=== PATIENT | female | born 1945 | race Caucasian/White ===

== ENCOUNTER 2017-07-02 08:24 | Emergency (ER) | payer OTHER ==
[~2017-07-02] VITALS: Ht 162.6 cm; Wt 75.0 kg
[2017-07-02 09:28] LABS: HEMATOCRIT 36.8 % (36.0-46.0); MCH 30.2 PG (29.0-34.0); MCHC 33.7 G/DL (30.0-36.0); MCV 89.5 FL (83-99); MEAN PLAT.VOLUME 9.8 uM^3 (9.5-12.4); PLATELET COUNT 224 K/uL (156-360); RBC DIS.WIDTH-CV 14.4 % (11.8-14.6); RBC DIS.WIDTH-SD 47.3 % (39-53); RED BLOOD COUNT 4.11 M/uL (3.80-5.20); WHITE BLOOD COUNT 10.7 K/uL (4.1-10.2)
[2017-07-02 09:49] LABS: ANION GAP 10 MEQ/L (2-14); CHLORIDE 100 MEQ/L (99-109); POTASSIUM 3.5 MEQ/L (3.7-5.4); SAMPLE HEMOLYSIS CHECK 0; SAMPLE ICTERIC CHECK 0; SAMPLE LIPEMIA CHECK 0; SODIUM 133 MEQ/L (136-147); TROP-I INTERPRETATION NEGATIVE; TROPONIN-I < 0.01 ng/mL (0.0-0.30)
[2017-07-02 09:55] LABS: GFR ESTIMATE (CALCULATED) > 59 mL/min/; GLUCOSE 84 mg/dL (70-99); UREA NITROGEN (BUN) 20 mg/dL (9-23)
[2017-07-02 10:15] LABS: ADD MIUA? YES; BILIRUBIN NEGATIVE; BLOOD NEGATIVE; COLOR STRAW ((YELLOW)); GLUCOSE (STRIP) NEGATIVE; KETONES NEGATIVE; LEUKOCYTES NEGATIVE; NITRITE NEGATIVE; PROTEIN (STRIP) NEGATIVE; SPECIFIC GRAVITY 1.006 (1.000-1.030); UROBILINOGEN 0.2 MG/DL (0.2-1.0)
[2017-07-02 10:18] LABS: BACTERIA NONE SEEN /HPF; EPITHELIAL CELLS RARE /HPF; MUCUS TRACE /LPF; RED BLOOD CELLS 0-5 /HPF (0-5); UCUL ADDED? NO; WHITE BLOOD CELLS 0-5 /HPF (0-5)
[2017-07-02] MEDS ORDERED: PREDNISONE50 MG PO (13:27)
[2017-07-02 14:05] VITALS: BP 117/76
== END 2017-07-02 14:00 | disposition home or self-care (01) ==
LOC: EME 08:24
PROVIDERS: Emergency Medicine
DX: J84.10 Pulmonary fibrosis, unspecified (principal); R07.89 Other chest pain; J45.909 Unspecified asthma, uncomplicated
CPT/HCPCS: 71010; 80048; 81003; 84484; 85027; 93005; 94640; 99281; 99285; J7512

== ENCOUNTER 2017-12-07 05:16 | Emergency (ER) | payer OTHER ==
[~2017-12-07] VITALS: Ht 162.6 cm; Wt 74.0 kg
[~2017-12-07 05:16] MED LIST: PREDNISONE50 MG PO
[2017-12-07 06:06] LABS: HEMATOCRIT 40.1 % (36.0-46.0); HEMOGLOBIN 13.5 G/DL (11.9-15.5); MCH 30.9 PG (29.0-34.0); MCHC 33.7 G/DL (30.0-36.0); MCV 91.8 FL (83-99); PLATELET COUNT 203 K/uL (156-360); RBC DIS.WIDTH-CV 14.1 % (11.8-14.6); RBC DIS.WIDTH-SD 47.4 % (39-53); RED BLOOD COUNT 4.37 M/uL (3.80-5.20); WHITE BLOOD COUNT 9.3 K/uL (4.1-10.2)
[2017-12-07 06:20] LABS: ALBUMIN 3.7 g/dL (3.2-4.8)
[2017-12-07 06:21] LABS: CHLORIDE 99 mEq/L (99-109); POTASSIUM 3.9 mEq/L (3.7-5.4); SODIUM 136 mEq/L (136-147)
[2017-12-07 06:23] LABS: GLUCOSE 103 mg/dL (70-99); TOTAL PROTEIN 6.2 g/dL (6.4-8.3)
[2017-12-07 06:25] LABS: TOTAL BILIRUBIN 0.5 mg/dL (0.0-1.0)
[2017-12-07 06:26] LABS: ALKALINE PHOSPHATASE 73 IU/L (3-129)
[2017-12-07 06:27] LABS: CREATININE 0.8 mg/dL (0.6-1.3); GFR ESTIMATE (CALCULATED) > 59 mL/min/
[2017-12-07 06:28] LABS: AST (GOT) 36 IU/L (2-34); UREA NITROGEN (BUN) 9 mg/dL (9-23)
[2017-12-07 06:29] LABS: ALT (GPT) 31 IU/L (3-49); TROP-I INTERPRETATION NEGATIVE; TROPONIN-I < 0.01 ng/mL (0.0-0.30)
[2017-12-07] MEDS ORDERED: PREDNISONE20 MG PO (06:42)
[2017-12-07] MEDS ORDERED: LEVAQUIN750 MG PO (06:42)
[2017-12-07 07:04] VITALS: BP 154/88
[2017-12-07 08:39] LABS: THYROTROPIN (TSH) 1.3 MIU/L (0.4-5.5)
== END 2017-12-07 07:08 | disposition home or self-care (01) ==
LOC: EME 05:16
PROVIDERS: Emergency Medicine
DX: J18.9 Pneumonia, unspecified organism (principal); J45.909 Unspecified asthma, uncomplicated; J84.10 Pulmonary fibrosis, unspecified; Z98.890 Other specified postprocedural states; Z90.49 Acquired absence of other specified parts of digestive tract; Z88.0 Allergy status to penicillin; Z88.2 Allergy status to sulfonamides
CPT/HCPCS: 71046; 80053; 82330; 83880; 84443; 84484; 85027; 93005; 94640; 99281; 99285; J2930

== ENCOUNTER 2017-12-09 02:26 | Emergency (ER) | payer OTHER ==
[~2017-12-09] VITALS: Ht 162.6 cm; Wt 73.5 kg
[~2017-12-09 02:26] MED LIST changes: +LEVAQUIN750 MG PO; +PREDNISONE20 MG PO
[2017-12-09 03:15] LABS: HEMATOCRIT 40.7 % (36.0-46.0); MCHC 34.4 G/DL (30.0-36.0); RBC DIS.WIDTH-CV 14.2 % (11.8-14.6); RED BLOOD COUNT 4.52 M/uL (3.80-5.20); WHITE BLOOD COUNT 15.5 K/uL (4.1-10.2)
[2017-12-09 03:16] LABS: CARBON DIOXIDE (BICARBONATE) 27.3 MEQ/L (20-31)
[2017-12-09 03:21] LABS: PLATELET COUNT 272 K/uL (156-360)
[2017-12-09 03:26] LABS: CHLORIDE 104 mEq/L (99-109); POTASSIUM 4.5 mEq/L (3.7-5.4); SODIUM 139 mEq/L (136-147)
[2017-12-09 03:28] LABS: GLUCOSE 94 mg/dL (70-99)
[2017-12-09 03:31] LABS: CREATININE 0.9 mg/dL (0.6-1.3); GFR ESTIMATE (CALCULATED) > 59 mL/min/
[2017-12-09 03:32] LABS: UREA NITROGEN (BUN) 20 mg/dL (9-23)
[2017-12-09 03:43] LABS: TROP-I INTERPRETATION NEGATIVE; TROPONIN-I < 0.01 ng/mL (0.0-0.30)
[2017-12-09 04:25] VITALS: BP 152/87
== END 2017-12-09 04:27 | disposition home or self-care (01) ==
LOC: EME 02:26
PROVIDERS: Emergency Medicine
DX: J45.901 Unspecified asthma with (acute) exacerbation (principal); J84.10 Pulmonary fibrosis, unspecified; E11.9 Type 2 diabetes mellitus without complications; Z90.49 Acquired absence of other specified parts of digestive tract; Z88.2 Allergy status to sulfonamides; Z88.0 Allergy status to penicillin; Z88.8 Allergy status to other drugs, medicaments and biological substances
CPT/HCPCS: 71046; 80048; 82803; 84484; 85027; 87502; 93005; 94640; 99281; 99284

== ENCOUNTER 2017-12-11 09:21 | Emergency (ER) | payer OTHER ==
[~2017-12-11] VITALS: Ht 162.6 cm; Wt 73.6 kg
[2017-12-11 12:22] LABS: HEMATOCRIT 44.8 % (36.0-46.0); HEMOGLOBIN 15.4 G/DL (11.9-15.5); MCH 31.2 PG (29.0-34.0); MCHC 34.4 G/DL (30.0-36.0); MCV 90.7 FL (83-99); PLATELET COUNT 300 K/uL (156-360); RBC DIS.WIDTH-CV 14.3 % (11.8-14.6); RBC DIS.WIDTH-SD 46.6 % (39-53); RED BLOOD COUNT 4.94 M/uL (3.80-5.20); WHITE BLOOD COUNT 16.9 K/uL (4.1-10.2)
[2017-12-11 12:42] LABS: CHLORIDE 98 mEq/L (99-109); SODIUM 136 mEq/L (136-147)
[2017-12-11 12:44] LABS: GLUCOSE 163 mg/dL (70-99)
[2017-12-11 12:48] LABS: CREATININE 1.2 mg/dL (0.6-1.3); GFR ESTIMATE (CALCULATED) 47 mL/min/
[2017-12-11 12:49] LABS: UREA NITROGEN (BUN) 27 mg/dL (9-23)
[2017-12-11 12:53] LABS: TROP-I INTERPRETATION NEGATIVE; TROPONIN-I < 0.01 ng/mL (0.0-0.30)
[2017-12-11 16:19] LABS: TROP-I INTERPRETATION NEGATIVE; TROPONIN-I < 0.01 ng/mL (0.0-0.30)
[2017-12-11 16:39] VITALS: BP 167/97
== END 2017-12-11 16:40 | disposition home or self-care (01) ==
LOC: EME 09:21
PROVIDERS: Physician Assistant Medical
DX: R06.00 Dyspnea, unspecified (principal); J84.10 Pulmonary fibrosis, unspecified; J45.909 Unspecified asthma, uncomplicated; E11.9 Type 2 diabetes mellitus without complications; I10 Essential (primary) hypertension; Z88.2 Allergy status to sulfonamides; Z88.0 Allergy status to penicillin
CPT/HCPCS: 71250; 80048; 84484; 85027; 85379; 93005; 94640; 99281; 99284

== ENCOUNTER 2018-03-11 04:18 | Emergency (ER) | payer OTHER ==
[~2018-03-11] VITALS: Ht 162.6 cm; Wt 79.2 kg
[2018-03-11 05:45] LABS: BASOPHIL (%) 0.2 % (0-1); EOSINOPHIL COUNT 0.2 K/uL (0-0.3); HEMATOCRIT 35.6 % (36.0-46.0); HEMOGLOBIN 11.5 G/DL (11.9-15.5); IMMATURE GRANULOCYTE (%) 0.3 % (0.0-0.7); LYMPHOCYTE (%) 18.5 % (15-42); LYMPHOCYTE COUNT 1.1 K/uL (1.0-2.8); MCH 32.1 PG (29.0-34.0); MCHC 32.3 G/DL (30.0-36.0); MCV 99.4 FL (83-99); MONOCYTE (%) 11.7 % (3-12); MONOCYTE COUNT 0.7 K/uL (0-0.8); NEUTROPHIL (%) 65.3 % (45-76); NEUTROPHIL COUNT 3.9 K/uL (1.8-6.4); PLATELET COUNT 203 K/uL (156-360); RBC DIS.WIDTH-SD 61.8 % (39-53); RED BLOOD COUNT 3.58 M/uL (3.80-5.20)
[2018-03-11 06:01] LABS: ALBUMIN 3.1 g/dL (3.2-4.8); CHLORIDE 106 mEq/L (99-109); POTASSIUM 3.7 mEq/L (3.7-5.4); SODIUM 135 mEq/L (136-147)
[2018-03-11 06:04] LABS: GLUCOSE 106 mg/dL (70-99); TOTAL PROTEIN 5.1 g/dL (6.4-8.3)
[2018-03-11 06:06] LABS: TOTAL BILIRUBIN 0.6 mg/dL (0.0-1.0)
[2018-03-11 06:07] LABS: ALKALINE PHOSPHATASE 47 IU/L (3-129); CREATININE 0.7 mg/dL (0.6-1.3); GFR ESTIMATE (CALCULATED) > 59 mL/min/
[2018-03-11 06:08] LABS: UREA NITROGEN (BUN) 8 mg/dL (9-23)
[2018-03-11 06:09] LABS: AST (GOT) 38 IU/L (2-34)
[2018-03-11 06:10] LABS: ALT (GPT) 24 IU/L (3-49)
[2018-03-11 06:11] LABS: LIPASE 7 U/L (1.0-51.0)
[2018-03-11 07:15] LABS: APPEARANCE CLEAR ((CLEAR)); BILIRUBIN NEGATIVE; BLOOD NEGATIVE; COLOR YELLOW ((YELLOW)); GLUCOSE (STRIP) NEGATIVE; KETONES 5; LEUKOCYTES NEGATIVE; NITRITE NEGATIVE; PROTEIN (STRIP) NEGATIVE; SPECIFIC GRAVITY 1.013 (1.000-1.030); UCUL ADDED? NO; UROBILINOGEN 0.2 MG/DL (0.2-1.0)
[2018-03-11] MEDS ORDERED: CIPRO500 MG PO (07:20)
[2018-03-11] MEDS ORDERED: FLAGYL500 MG PO (07:23)
[2018-03-11] MEDS ORDERED: BENTYL10 MG PO (07:30)
[2018-03-11] MEDS ORDERED: ZOFRAN4 MG PO (07:30)
[2018-03-11 07:43] VITALS: BP 108/60
== END 2018-03-11 07:40 | disposition home or self-care (01) ==
LOC: EME 04:18
PROVIDERS: Emergency Medicine
DX: K52.9 Noninfective gastroenteritis and colitis, unspecified (principal); I10 Essential (primary) hypertension; E11.9 Type 2 diabetes mellitus without complications; J45.909 Unspecified asthma, uncomplicated; J84.10 Pulmonary fibrosis, unspecified; Z90.49 Acquired absence of other specified parts of digestive tract; Z88.2 Allergy status to sulfonamides; Z88.0 Allergy status to penicillin; Z88.8 Allergy status to other drugs, medicaments and biological substances
CPT/HCPCS: 74177; 80053; 81003; 83690; 85025; 93005; 99281; 99285; J2405; J3010; J7030

== ENCOUNTER 2018-03-13 04:50 | Emergency (ER) | payer OTHER ==
[~2018-03-13] VITALS: Ht 162.6 cm; Wt 79.5 kg
[~2018-03-13 04:50] MED LIST changes: +BENTYL10 MG PO; +CIPRO500 MG PO; +FLAGYL500 MG PO; +ZOFRAN4 MG PO
[2018-03-13 05:28] LABS: ALBUMIN 3.7 g/dL (3.2-4.8)
[2018-03-13 05:29] LABS: CHLORIDE 104 mEq/L (99-109); POTASSIUM 3.9 mEq/L (3.7-5.4); SODIUM 136 mEq/L (136-147)
[2018-03-13 05:30] LABS: HEMATOCRIT 41.6 % (36.0-46.0); HEMOGLOBIN 13.3 G/DL (11.9-15.5); RBC DIS.WIDTH-CV 17.2 % (11.8-14.6); RBC DIS.WIDTH-SD 63.4 % (39-53); RED BLOOD COUNT 4.16 M/uL (3.80-5.20); WHITE BLOOD COUNT 6.8 K/uL (4.1-10.2)
[2018-03-13 05:31] LABS: GLUCOSE 94 mg/dL (70-99)
[2018-03-13 05:32] LABS: PLATELET COUNT 266 K/uL (156-360)
[2018-03-13 05:34] LABS: ALKALINE PHOSPHATASE 42 IU/L (3-129)
[2018-03-13 05:35] LABS: CREATININE 0.8 mg/dL (0.6-1.3); GFR ESTIMATE (CALCULATED) > 59 mL/min/
[2018-03-13 05:36] LABS: AST (GOT) 39 IU/L (2-34); UREA NITROGEN (BUN) 5 mg/dL (9-23)
[2018-03-13 05:37] LABS: ALT (GPT) 25 IU/L (3-49)
[2018-03-13 05:39] LABS: TOTAL BILIRUBIN 0.4 mg/dL (0.0-1.0); TOTAL PROTEIN 6.5 g/dL (6.4-8.3)
[2018-03-13 06:01] LABS: APPEARANCE CLOUDY ((CLEAR)); BILIRUBIN NEGATIVE; BLOOD NEGATIVE; COLOR AMBER ((YELLOW)); GLUCOSE (STRIP) NEGATIVE; KETONES 80; LEUKOCYTES SMALL; NITRITE NEGATIVE; PROTEIN (STRIP) NEGATIVE; SPECIFIC GRAVITY 1.014 (1.000-1.030); UROBILINOGEN 0.2 MG/DL (0.2-1.0)
[2018-03-13 06:27] LABS: EPITHELIAL CELLS 1+ /HPF
[2018-03-13 06:28] LABS: LIPASE 9 U/L (1.0-51.0)
[2018-03-13 06:28] LABS: BACTERIA NONE SEEN /HPF; MUCUS NONE SEEN /LPF; RED BLOOD CELLS NONE SEEN /HPF (0-5); UCUL ADDED? NO; WHITE BLOOD CELLS 0-5 /HPF (0-5)
[2018-03-13 06:29] LABS: AMORPHOUS URATES CRYSTALS 1+
[2018-03-13 07:02] LABS: TROP-I INTERPRETATION NEGATIVE; TROPONIN-I 0.01 ng/mL (0.0-0.30)
[2018-03-13 08:40] LABS: TROP-I INTERPRETATION NEGATIVE; TROPONIN-I 0.01 ng/mL (0.0-0.30)
[2018-03-13] MEDS ORDERED: PROMETHAZINE HC25 M1 PO (09:30)
[2018-03-13] MEDS ORDERED: BENTYL10 MG PO (09:30)
[2018-03-13 09:54] VITALS: BP 102/59
[2018-03-17] MEDS ORDERED: CIPRO500 MG PO (23:36)
[2018-03-17] MEDS ORDERED: FLAGYL500 MG PO (23:37)
[2018-03-17] MEDS ORDERED: AMLODIPINE BESYL5 MG PO (23:38)
[2018-03-17] MEDS ORDERED: BEVESPI AEROS10.7 GM IH (23:38)
[2018-03-17] MEDS ORDERED: OFEV150 MG PO (23:38)
[2018-03-17] MEDS ORDERED: LANTUS 10100 UNITS/ SC (23:38)
[2018-03-17] MEDS ORDERED: PRAVACHOL20 MG PO (23:39)
[2018-03-17] MEDS ORDERED: SYNTHROID50 MCG PO (23:39)
[2018-03-17] MEDS ORDERED: VENTOLIN HFA18 GM IH (23:39)
[2018-03-17] MEDS ORDERED: SINGULAIR10 MG PO (23:39)
[2018-03-17] MEDS ORDERED: VITAMIN D-32000 UNI2 PO (23:40)
[2018-03-17] MEDS ORDERED: SUPER B COMPL400 MCG PO (23:40)
[2018-03-17] MEDS ORDERED: FISH OIL 1,0001 EAC7 PO (23:40)
[2018-03-17] MEDS ORDERED: ADULT ASPIRIN81 MG PO (23:40)
[2018-03-17] MEDS ORDERED: METOPROLOL SUC100 MG PO (23:40)
[2018-03-17] MEDS ORDERED: ASCORBIC ACID500 M3 PO (23:40)
[2018-03-17] MEDS ORDERED: GLUCOPHAGE500 MG PO (23:40)
[2018-03-17] MEDS ORDERED: PROMETHAZINE HC25 M1 PO (23:41)
[2018-03-17] MEDS ORDERED: NOVOLIN,HU100 UNITS1 SC (23:41)
== END 2018-03-13 09:56 | disposition home or self-care (01) ==
LOC: EME 04:50
PROVIDERS: Physician Assistant
DX: K52.9 Noninfective gastroenteritis and colitis, unspecified (principal); E11.9 Type 2 diabetes mellitus without complications; I10 Essential (primary) hypertension; J45.909 Unspecified asthma, uncomplicated; Z90.49 Acquired absence of other specified parts of digestive tract; Z88.0 Allergy status to penicillin; Z88.2 Allergy status to sulfonamides
CPT/HCPCS: 71045; 74177; 80053; 81003; 83630; 83690; 84484; 85027; 87493; 87506; 93005; 99281; 99285; J2270; J2405; J2550; J2765; J7030